=== PATIENT | female | born 1980 | race Caucasian/White ===

== ENCOUNTER → 2020-06-08 | Outpatient (CLI) | payer BC ==
--- NOTE | 2020-06-08 16:11 | REP ---
REASON FOR EXAM: Cough. There are no priors for comparison. FINDINGS: The superior mediastinal structures are midline. The cardiac silhouette is unremarkable in size, shape, and position. The diaphragmatic surfaces of the lungs are regular, and the costophrenic angles are clear. The pulmonary zaman are clear. The imaged osseous structures are intact. IMPRESSION: There is no acute cardiopulmonary disease. Electronically Signed by Francis Marinelli DO 06/09/2020 11:04 A
== END ==
LOC: M ADAMS 11:47
PROVIDERS: ATTEND Physician Assistant
DX: R05 Cough (principal)